=== PATIENT | female | born 1955 | race Two or more races ===

== ENCOUNTER 2018-09-05 06:00 | Day surgery (SDC) | payer OTHER ==
[~2018-09-05 06:00] MED LIST: ALDACTONE25 MG PO; ATIVAN1 M1 PO; EFFESOR PO; LOSARTAN-HCTZ1 EAC1 PO; OMEPRAZOLE20 MG PO; PROCARDIA PO; REMERON30 M1 PO; RESTORIL30 M1 PO; [UNRECOGNIZED DRUG - OTHER] PO
[2018-09-05] MEDS ORDERED: NAPROXEN SODIU550 MG PO (08:17)
== END 2018-09-05 10:38 | disposition home or self-care (01) ==
LOC: CIR.AMB 06:00
DX: N95.0 Postmenopausal bleeding (principal)

== ENCOUNTER 2022-01-27 12:45 | Inpatient (IN) | payer OTHER ==
[~2022-01-27] VITALS: Ht 152.4 cm; Wt 60.8 kg
[~2022-01-27 12:45] MED LIST changes: +NAPROXEN SODIU550 MG PO
[2022-01-27] MEDS ORDERED: NEURONTIN800 MG PO (14:22)
[2022-01-27] MEDS ORDERED: PROTONIX40 MG PO (14:22)
[2022-01-27] MEDS ORDERED: ATIVAN2 M1 PO (14:22)
[2022-01-27] MEDS ORDERED: COZAAR100 MG PO (16:36)
[2022-02-02] MEDS ORDERED: AMITRIPTYLINE H50 MG (16:16)
[2022-02-02] MEDS ORDERED: ESTRADIOL1 EAC6 (16:17)
[2022-02-02] MEDS ORDERED: MONTELUKAST SOD10 MG (16:18)
[2022-02-02] MEDS ORDERED: TIZANIDINE HCL4 MG (16:18)
[2022-02-02] MEDS ORDERED: DOXAZOSIN MESYLA1 MG (16:18)
[2022-02-02] MEDS ORDERED: FLONASE16 GM (16:18)
[2022-02-02] MEDS ORDERED: DICLOFENAC SODI75 MG (16:18)
[2022-02-02] MEDS ORDERED: ATORVASTATIN CA20 MG (16:18)
[2022-02-02] MEDS ORDERED: NIFEDIPINE ER90 MG (16:18)
[2022-02-02] MEDS ORDERED: PROPRANOLOL HC120 MG (16:18)
[2022-02-02] MEDS ORDERED: FOLIC ACID1 MG (16:18)
[2022-02-02] MEDS ORDERED: ORENCIA CL125 MG/1 M (16:18)
[2022-02-03] MEDS ORDERED: IBU800 MG PO (07:19)
[2022-02-03] MEDS ORDERED: NEURONTIN300 MG PO (07:20)
== END 2022-02-03 11:56 | disposition home or self-care (01) | DRG 743 ==
LOC: OB/GYN 02-02 05:30 → O/R 02-02 05:30 → SURG 02-02 10:45 → OB/GYN 02-02 11:54 → SURG 02-02 12:45 → OB/GYN 02-03 11:56
PROVIDERS: Urology; ADMIT Obstetrics & Gynecology Gynecology; ATTEND Obstetrics & Gynecology Gynecology
PROC: 0USG0ZZ Reposition Vagina, Open Approach (ICD-10-PCS; 2022-02-02)
PROC: 0TSD4ZZ Reposition Urethra, Percutaneous Endoscopic Approach (ICD-10-PCS; 2022-02-02)
PROC: 0TJB8ZZ Inspection of Bladder, Via Natural or Artificial Opening Endoscopic (ICD-10-PCS; 2022-02-02)
PROC: 0UT97ZZ Resection of Uterus, Via Natural or Artificial Opening (ICD-10-PCS; principal; 2022-02-02 10:45)
PROC: 0JQC0ZZ Repair Pelvic Region Subcutaneous Tissue and Fascia, Open Approach (ICD-10-PCS; 2022-02-02 10:45)
DX: D25.1 Intramural leiomyoma of uterus (principal); N81.11 Cystocele, midline; N80.03 Adenomyosis of the uterus; N39.3 Stress incontinence (female) (male); Z20.822 Contact with and (suspected) exposure to COVID-19

== ENCOUNTER 2022-02-03 23:33 | Emergency (ER) | payer OTHER ==
[~2022-02-03] VITALS: Ht 152.4 cm; Wt 56.7 kg
[~2022-02-03 23:33] MED LIST changes: +AMITRIPTYLINE H50 MG; +ATIVAN2 M1 PO; +ATORVASTATIN CA20 MG; +COZAAR100 MG PO; +DICLOFENAC SODI75 MG; +DOXAZOSIN MESYLA1 MG; +ESTRADIOL1 EAC6; +FLONASE16 GM; +FOLIC ACID1 MG; +IBU800 MG PO; +MONTELUKAST SOD10 MG; +NEURONTIN300 MG PO; +NEURONTIN800 MG PO; +NIFEDIPINE ER90 MG; +ORENCIA CL125 MG/1 M; +PROPRANOLOL HC120 MG; +PROTONIX40 MG PO; +TIZANIDINE HCL4 MG
== END 2022-02-04 04:02 ==
LOC: ER 23:33
DX: N99.0 Postprocedural (acute) (chronic) kidney failure (principal); I10 Essential (primary) hypertension